=== PATIENT | male | born 1975 | race Caucasian/White ===

== ENCOUNTER 2021-07-15 00:59 | Day surgery (SDC) | payer OTHER, MEDICARE, SELFPAY ==
[2021-07-07 13:31] VITALS: BMI 38.5
--- NOTE | 2021-07-12 08:21 | P.HP_ITS ---
History of Present Illness History of Present Illness Consent: Risks, benefits, and alternatives have been discussed and questions answered. Patient agrees to proceed with procedure. Chief complaint: BPH Narrative: Benito Mehta is a 46 year old male we have seen for prostatism since September 2017. outpatient cystoscopy has demonstrated predominantly lateral lobe hyperplasia. Transrectal ultrasonography reveals a 14.5 g prostate without a middle lobe. PSAs, reported by his primary care physician, been normal. Although he response to combination therapy for BPH he elects now for your left. We have discussed alternative therapeutic options including TURP and other minimally invasive procedures. He is aware the risk of this including, but not limited to, postoperative voiding symptoms, hematuria and a slight chance of retrograde ejaculation. Review of Systems Cardiovascular: Cardiovascular: Denies chest pain, Denies lightheadedness, Denies palpitations and Denies dyspnea Respiratory: Respiratory: Denies dyspnea Gastrointestinal: Gastrointestinal: Denies diarrhea, Denies nausea and Denies vomiting Genitourinary: Genitourinary: Denies hematuria and Denies dysuria Endocrine: Endocrine: Denies palpitations PMF Social History Social History Smoking status: Never smoker Alcohol intake: never Substance use: never Substance use type: does not use Living arrangements: with family Spiritual care concerns: No Meds Home Medications and Allergies Home Medications Medication Instructions Recorded Confirmed Type ascorbic acid (vitamin C) [Vitamin 1 g PO HS 07/07/21 07/07/21 History C] aspirin [Baby Aspirin] 162 mg PO HS 07/07/21 07/07/21 History atorvastatin 40 mg PO HS 07/07/21 07/07/21 History rhjqzgtade-qozrncjfysavi-kdlc 1 - 2 tablet PO ONCE PRN 07/07/21 07/07/21 History eletriptan 40 mg PO ONCE PRN 07/07/21 07/07/21 History gabapentin 300 mg PO TID 07/07/21 07/07/21 History omeprazole 20 mg PO HS 07/07/21 07/07/21 History zonisamide 200 mg PO BID 07/07/21 07/07/21 History Allergies Allergy/AdvReac Type Severity Reaction Status Date / Time meperidine [From Demerol] Allergy Nausea and Verified 07/07/21 13:26 Vomiting morphine Allergy Nausea and Verified 07/07/21 13:26 Vomiting Exam Const: General: no acute distress Resp: Effort & Inspection: normal respiratory effort GI: Inspection: non-distended GI Palp: No abdominal tenderness and No Guarding due to palpation present (GI) Auscultation: normal bowel sounds Assessment and Plan Assessment and plan (1) BPH loc w urin obs/LUTS: Code(s): N40.1 - Benign prostatic hyperplasia with lower urinary tract symptoms Status: Acute Assessment and Plan: * UroLift
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
--- NOTE | 2021-07-15 06:44 | WPDHPUPDATE1 ---
History and Physical Update Update Date/Time: 07/15/21 06:44 History and Physical has been reviewed, including an updated exam of the patient. There are NO changes in the patient's condition. Risks, benefits, and alternatives have been discussed and questions answered. Patient agrees to proceed with procedure.
--- NOTE | 2021-07-15 07:03 | ECG_ITS ---
Measurements Intervals [place] Rate: 47 P: 37 MI: 179 QRS: 28 QRSD: 117 T: 49 QT: 489 QTc: 435 Interpretive Statements SINUS BRADYCARDIA INTRAVENTRICULAR CONDUCTION DELAY T WAVE ABNORMALITY IN ANTEROLATERAL LEADS- CONSIDER ISCHEMIA ABNORMAL ECG Electronically Signed On 07-15-2021 11:16:19 CDT by Samy Vale D.O.
[2021-07-15 09:51] VITALS: BP 148/95; PULSE 57; RESP 18; TEMP 36; O2SAT 98
[2021-07-15] MEDS: LACTATED RINGERS 1,000 ML 30 ML IV CONT (09:54)
[2021-07-15] MEDS: LIDOCAINE HCL 2% GEL UROJET 10 ML PKG MUCOUS MEM (11:17)
--- NOTE | 2021-07-15 11:24 | W.PM.PROC2 ---
Procedure Note - Detailed Date of Procedure 07/15/21 Pre-op Diagnosis BPH Post-op Diagnosis same Procedure Performed UroLift Surgeon Alvaro Edwards MD Anesthesia general Description of Procedure The patient was prepped and draped in a routine fashion after the uneventful induction of a general LMA anesthetic. A 20F cystoscope was inserted into the bladder. The cystoscopy bridge was replaced with a UroLift delivery device. The first treatment site was the patient's right side approximately 1.5cm distal to the bladder neck. The distal tip of the delivery device was then angled laterally approximately 20 degrees at this position to compress the lateral lobe. The trigger was pulled, thereby deploying a needle containing the implant through the prostate. The needle was then retracted, allowing one end of the implant to be delivered to the capsular surface of the prostate. The implant was then tensioned to assure capsular seating and removal of slack monofilament. The device was then angled back toward midline and slowly advanced proximally (typically 3 to 4 mm) until cystoscopic verification of the monofilament being centered in the delivery bay. The urethral end piece was then affixed to the monofilament thereby tailoring the size of the implant. Excess filament was then severed. The delivery device was then re-advanced into the bladder. The delivery device was then replaced with cystoscope and bridge and the implant location and opening effect was confirmed cystoscopically. The same procedure was then repeated on the left side, and two additional implants were delivered just proximal to the verumontanum, again one on right and one on left side of the prostate, following the same technique. Therefore, a total of 4 implants were delivered. A final cystoscopy was conducted first to inspect the location and state of each implant and second, to confirm the presence of a continuous anterior channel was present through the prostatic urethra with irrigation flow turned off. The bladder was then filled with 150 cc irrigation fluid to assist the patient in void trial after the procedure, and all instruments were removed. At this point the cystoscope was removed and the patient was taken to the PACU in good condition. Estimated Blood Loss 0 Drains No Packing No Pathology none sent Complications No immediate complications Condition stable Disposition PACU
[2021-07-15 11:35] VITALS: BP 106/64; PULSE 73; RESP 17; TEMP 36.2; O2SAT 94
[2021-07-15 11:50] VITALS: BP 112/91; PULSE 67; RESP 16; O2SAT 98
[2021-07-15 12:05] VITALS: BP 123/90; PULSE 58; RESP 18; O2SAT 98
[2021-07-15 12:09] VITALS: BP 122/84; PULSE 56; RESP 16
[2021-07-15 12:39] VITALS: BP 133/85; PULSE 52; RESP 16
== END 2021-07-15 12:56 | disposition home or self-care (01) ==
PROVIDERS: PCP Family Medicine Sports Medicine; Visit Provider Urology
PROC: 0T7D8DZ Dilation of Urethra with Intraluminal Device, Via Natural or Artificial Opening Endoscopic (ICD-10-PCS; CPT 52441; principal; 2021-07-15 11:30)
DX: N40.1 Benign prostatic hyperplasia with lower urinary tract symptoms (principal); I10 Essential (primary) hypertension; G40.909 Epilepsy, unspecified, not intractable, without status epilepticus; G47.33 Obstructive sleep apnea (adult) (pediatric); E78.00 Pure hypercholesterolemia, unspecified; Z87.820 Personal history of traumatic brain injury; E66.01 Morbid (severe) obesity due to excess calories; Z68.41 Body mass index [BMI] 40.0-44.9, adult; Z79.82 Long term (current) use of aspirin
CPT/HCPCS: 52441; 52442 ×3; 93005; J2250; J2704; J3010; J7120; L8699